=== PATIENT | female | born 1980 | race Hispanic/Latino ===

== ENCOUNTER 2017-12-01 12:24 | Emergency (ER) | payer MEDICAID | END 2017-12-01 14:36 | disposition home or self-care (01) | LOC: EDH 12:24 | DX: F41.1 Generalized anxiety disorder (principal); R07.89 Other chest pain; F31.9 Bipolar disorder, unspecified; G43.909 Migraine, unspecified, not intractable, without status migrainosus; F43.10 Post-traumatic stress disorder, unspecified; Z88.8 Allergy status to other drugs, medicaments and biological substances; Z79.899 Other long term (current) drug therapy; Z72.0 Tobacco use | CPT/HCPCS: 93005 ==

== ENCOUNTER 2018-01-11 20:45 | Emergency (ER) | payer MEDICAID ==
[2018-01-11 22:34] LABS: BASOPHILS % (AUTO) 0.8 % (0.0-5.0); EOSINOPHILS % (AUTO) 1.3 % (0.0-8.0); LYMPHOCYTES % (AUTO) 31.8 % (21.0-51.0); MEAN CORPUSCULAR HEMOGLOBIN 31.1 pg (27.0-33.0); MEAN CORPUSCULAR HGB CONC 34.1 g/dL (32.0-36.0); MEAN CORPUSCULAR VOLUME 91.1 fL (79-99); MONOCYTES % (AUTO) 6.7 % (3.0-13.0); NEUTROPHILS % (AUTO) 59.4 % (40.0-77.0); PLATELET COUNT (AUTO) 192 K/uL (130-400); RED BLOOD CELL COUNT(AUTO) 3.73 MIL/uL (4.00-5.50); RED CELL DISTRIBUTION WIDTH 15.7 % (11.0-15.5); WHITE BLOOD COUNT (AUTO) 7.4 K/uL (4.8-10.8)
[2018-01-11 22:42] LABS: APPEARANCE,URINE CLEAR (CLEAR); BILIRUBIN,URINE NEGATIVE (NEGATIVE); COLOR,URINE YELLOW (YELLOW); GLUCOSE, URINE (UA) NEGATIVE (NEGATIVE); KETONES,URINE NEGATIVE (NEGATIVE); LEUKOCYTE ESTERASE ,URINE NEGATIVE (NEGATIVE); NITRATE,URINE NEGATIVE (NEGATIVE); OCCULT BLOOD,URINE NEGATIVE (NEGATIVE); PH,URINE 5.5 (5.0-8.0); PROTEIN,URINE NEGATIVE (NEGATIVE); UROBILINOGEN,URINE 0.2 mg/dL (0.2-1.0)
[2018-01-11] MEDS ORDERED: DICYCLOMINE HCL 10 MG/ML 2ML AMP IM ONE (22:42)
[2018-01-11 23:04] LABS: CREATININE 0.8 mg/dL (0.5-1.5); POTASSIUM 4.9 mmol/L (3.5-5.1)
[2018-01-11 23:10] LABS: ALBUMIN 3.6 g/dL (3.5-5.0); BILIRUBIN,TOTAL 0.2 mg/dL (0.2-1.0); TOTAL PROTEIN, SERUM 6.9 g/dL (6.0-8.3)
[2018-01-11] MEDS ORDERED: HYOSCYAMINE SULFATE 0.125 MG TAB.SUBL SL ONE (23:57)
== END 2018-01-12 00:11 | disposition home or self-care (01) ==
LOC: EDH 20:45
DX: K59.00 Constipation, unspecified (principal); G43.909 Migraine, unspecified, not intractable, without status migrainosus; F20.9 Schizophrenia, unspecified; Z90.710 Acquired absence of both cervix and uterus; Z90.49 Acquired absence of other specified parts of digestive tract; Z88.6 Allergy status to analgesic agent; Z72.0 Tobacco use
CPT/HCPCS: 36415; 74176; 80053; 81003; 85025; 96372; 99285; J0500

== ENCOUNTER 2018-01-28 21:32 | Emergency (ER) | payer MEDICAID ==
[2018-01-28 22:16] LABS: BASOPHILS % (AUTO) 0.9 % (0.0-5.0); EOSINOPHILS % (AUTO) 3.8 % (0.0-8.0); HEMATOCRIT 33.4 % (36-48); LYMPHOCYTES % (AUTO) 40.3 % (21.0-51.0); MEAN CORPUSCULAR HEMOGLOBIN 30.3 pg (27.0-33.0); MEAN CORPUSCULAR HGB CONC 32.9 g/dL (32.0-36.0); MEAN CORPUSCULAR VOLUME 92.1 fL (79-99); MONOCYTES % (AUTO) 8.7 % (3.0-13.0); NEUTROPHILS % (AUTO) 46.3 % (40.0-77.0); NUCLEATED RED BLOOD CELLS 0.1 % (0.0-0.19); PLATELET COUNT (AUTO) 177 K/uL (130-400); RED BLOOD CELL COUNT(AUTO) 3.63 MIL/uL (4.00-5.50); RED CELL DISTRIBUTION WIDTH 15.3 % (11.0-15.5); WHITE BLOOD COUNT (AUTO) 5.1 K/uL (4.8-10.8)
[2018-01-28 22:20] LABS: CREATININE 1.9 mg/dL (0.5-1.5); POTASSIUM 4.2 mmol/L (3.5-5.1)
[2018-01-28 22:25] LABS: ALBUMIN 3.5 g/dL (3.5-5.0); BILIRUBIN,TOTAL 0.2 mg/dL (0.2-1.0); TOTAL PROTEIN, SERUM 6.9 g/dL (6.0-8.3)
[2018-01-28 22:41] LABS: B-TYPE NATRIURETIC PEPTIDE 18 pg/mL (0-100)
== END 2018-01-29 00:14 | disposition home or self-care (01) ==
LOC: EDH 21:32
DX: R60.0 Localized edema (principal); F43.10 Post-traumatic stress disorder, unspecified; G43.909 Migraine, unspecified, not intractable, without status migrainosus; F41.0 Panic disorder [episodic paroxysmal anxiety]; Z72.0 Tobacco use; Z88.6 Allergy status to analgesic agent
CPT/HCPCS: 36415; 71046; 80053; 82550; 83880; 84484; 85025; 93005; 93970

== ENCOUNTER → 2021-08-31 | Outpatient (CLI) | payer OTHER | END | disposition home or self-care (01) | LOC: DTH 09:37 | PROVIDERS: ATTEND Surgery | DX: Z71.3 Dietary counseling and surveillance (principal); G47.33 Obstructive sleep apnea (adult) (pediatric); K76.0 Fatty (change of) liver, not elsewhere classified; K21.9 Gastro-esophageal reflux disease without esophagitis; E66.09 Other obesity due to excess calories; Z68.37 Body mass index [BMI] 37.0-37.9, adult | CPT/HCPCS: 97803 ==

== ENCOUNTER 2021-10-19 06:50 | Day surgery (SDC) | payer OTHER ==
[2021-10-16 12:59] LABS: BASOPHILS % (AUTO) 0.7 % (0.0-5.0); EOSINOPHILS % (AUTO) 2.2 % (0.0-8.0); HEMATOCRIT 36.9 % (36-48); LYMPHOCYTES % (AUTO) 32.7 % (21.0-51.0); MEAN CORPUSCULAR HEMOGLOBIN 29.9 pg (27.0-33.0); MEAN CORPUSCULAR HGB CONC 31.2 g/dL (32.0-36.0); MEAN CORPUSCULAR VOLUME 96.1 fL (79-99); MONOCYTES % (AUTO) 7.7 % (3.0-13.0); NEUTROPHILS % (AUTO) 56.5 % (40.0-77.0); PLATELET COUNT (AUTO) 165 K/uL (130-400); RED BLOOD CELL COUNT(AUTO) 3.84 MIL/uL (4.00-5.50); RED CELL DISTRIBUTION WIDTH 15.6 % (11.0-15.5); WHITE BLOOD COUNT (AUTO) 4.6 K/uL (4.8-10.8)
[2021-10-16 13:17] LABS: CREATININE 0.9 mg/dL (0.5-1.5); POTASSIUM 3.7 mmol/L (3.5-5.1)
[~2021-10-19] VITALS: Ht 167.6 cm; Wt 109.3 kg
[~2021-10-19 06:50] MED LIST: ALPR-411 PO; BENZ2TAB10 PO; BUSP15TA3 PO; CETI10TA57 PO; ESCI20TA38 PO; GABA300S PO; OXCA300T28 PO; PRAZ1CAP5 PO; QUET300T71 PO; QUET400T54 PO; SPIR100T5 PO; TOPI100C5 PO; TOPI50CA5 PO
[2021-10-19] MEDS ORDERED: 0.9%NACL 1000ML 1,000 ML IV ONE (07:04)
[2021-10-19 07:38] VITALS: BP 130/83
[2021-10-19] MEDS ORDERED: MIDAZOLAM HCL 1 MG/ML 2ML VIAL ONE (08:41)
[2021-10-19] MEDS ORDERED: PROPOFOL 10 MG/ML 20ML VIAL IV ONE (08:41)
[2021-10-19] MEDS ORDERED: GLYCOPYRROLATE 0.2 MG/ML 5 ML VIAL ONE (08:41)
[2021-10-19] MEDS ORDERED: LIDOCAINE HCL 400MG/20ML VIAL ONE (08:41)
[2021-10-19 08:55] VITALS: BP 123/82
[2021-10-19 09:00] VITALS: BP 121/84
[2021-10-19 09:05] VITALS: BP 140/90
[2021-10-19 09:10] VITALS: BP 139/83
[2021-10-19 09:15] VITALS: BP 130/93
== END 2021-10-19 09:30 | disposition home or self-care (01) ==
LOC: DAH 06:50
PROVIDERS: ATTEND Surgery
DX: K21.9 Gastro-esophageal reflux disease without esophagitis (principal); Z20.822 Contact with and (suspected) exposure to COVID-19; J45.909 Unspecified asthma, uncomplicated; E66.01 Morbid (severe) obesity due to excess calories; G43.909 Migraine, unspecified, not intractable, without status migrainosus; G47.30 Sleep apnea, unspecified; Z98.890 Other specified postprocedural states; Z90.49 Acquired absence of other specified parts of digestive tract; Z98.84 Bariatric surgery status; Z98.51 Tubal ligation status; Z68.39 Body mass index [BMI] 39.0-39.9, adult
CPT/HCPCS: 36415; 43235; 80048; 85025; 87426; 93005; A4215 ×2; A4221; A4223; A4606; A4620; A4663; J2250; J2704; J3490 ×2; J7030

== ENCOUNTER 2023-07-09 17:36 | Emergency (ER) | payer OTHER ==
[~2023-07-09] VITALS: Ht 167.6 cm; Wt 119.7 kg
[~2023-07-09 17:36] MED LIST changes: -BENZ2TAB10 PO; +BENZ2TAB70 PO; -GABA300S PO; +GABA300S3 PO; -QUET300T71 PO; +QUET300T90 PO
[2023-07-09 17:58] LABS: BASOPHILS # (AUTO) 0.03 K/uL (0.00-0.20); BASOPHILS % (AUTO) 0.4 % (0.0-5.0); EOSINOPHILS # (AUTO) 0.11 K/uL (0.00-0.70); EOSINOPHILS % (AUTO) 1.5 % (0.0-8.0); HEMATOCRIT 37.3 % (36-48); IMMATURE GRANULOCYTE ABSOLUTE 0.04 K/uL (0-1); LYMPHOCYTES # (AUTO) 1.9 K/uL (1.0-4.8); LYMPHOCYTES % (AUTO) 26.5 % (21.0-51.0); MEAN CORPUSCULAR HEMOGLOBIN 29.4 pg (27.0-33.0); MEAN CORPUSCULAR HGB CONC 31.1 g/dL (32.0-36.0); MEAN CORPUSCULAR VOLUME 94.7 fL (79-99); MONOCYTES # (AUTO) 0.5 K/uL (0.1-1.0); MONOCYTES % (AUTO) 6.3 % (3.0-13.0); NEUTROPHILS # (AUTO) 4.7 K/uL (1.8-7.7); NEUTROPHILS % (AUTO) 64.8 % (40.0-77.0); PLATELET COUNT (AUTO) 203 K/uL (130-400); RED BLOOD CELL COUNT(AUTO) 3.94 MIL/uL (4.00-5.50); RED CELL DISTRIBUTION WIDTH 14.5 % (11.0-15.5); WHITE BLOOD COUNT (AUTO) 7.3 K/uL (4.8-10.8)
[2023-07-09 18:05] LABS: POTASSIUM 4.3 mmol/L (3.5-5.1)
[2023-07-09 18:15] LABS: ALBUMIN 3.8 g/dL (3.5-5.0); BILIRUBIN,TOTAL 0.2 mg/dL (0.2-1.0); TOTAL PROTEIN, SERUM 7.9 g/dL (6.0-8.3)
[2023-07-09] MEDS ORDERED: ACETAMINOPHEN 500 MG TABLET PO ONE (20:30)
[2023-07-09] MEDS ORDERED: CYCLOBENZAPRINE HCL 10 MG TABLET PO ONE (20:30)
[2023-07-09] MEDS ORDERED: ACET-2079 PO (21:42)
[2023-07-09] MEDS ORDERED: CYCL10TA16 PO (21:42)
[2023-07-09 22:08] VITALS: BP 139/68; PULSE 60; RESP 18; O2SAT 98
== END 2023-07-09 22:18 | disposition home or self-care (01) ==
LOC: EDH 17:36
DX: R07.89 Other chest pain (principal); E66.9 Obesity, unspecified; Z79.899 Other long term (current) drug therapy; Z88.6 Allergy status to analgesic agent; Z68.42 Body mass index [BMI] 45.0-49.9, adult; V89.2XXA Person injured in unspecified motor-vehicle accident, traffic, initial encounter; Y93.89 Activity, other specified; Y92.89 Other specified places as the place of occurrence of the external cause; Y99.8 Other external cause status
CPT/HCPCS: 36415; 71045; 80053; 82550; 84484; 85025; 93005

== ENCOUNTER 2024-10-11 06:44 | Day surgery (SDC) | payer OTHER ==
[2024-10-11] VITALS (11 sets, daily range): BP systolic 118–155; BP diastolic 74–101; PULSE 66–77; RESP 16–29; TEMP 97.3–97.8
[~2024-10-11] VITALS: Ht 167.6 cm; Wt 131.5 kg
[~2024-10-11 06:44] MED LIST changes: -ALPR-411 PO; +ALPR1TAB10 PO; -BENZ2TAB70 PO; +BENZ2TAB71 PO; -GABA300S3 PO; -OXCA300T28 PO; -QUET300T90 PO; +SODIUM TETRADECYL SULFATE 30 MG/ML 2 ML VIAL IV SCH; -SPIR100T5 PO; +[UNRECOGNIZED DRUG - CODE] PO
[2024-10-11] MEDS: 0.9%NACL 1000ML 1,000 ML IV ONE (07:25)
[2024-10-11] MEDS ORDERED: MIDAZOLAM HCL 1 MG/ML 2ML VIAL ONE (08:25)
[2024-10-11] MEDS ORDERED: proPOFol 10 MG/ML 20ML VIAL IV ONE (08:25)
[2024-10-11] MEDS ORDERED: LIDOCAINE PF 100MG/5ML (2%) SYRINGE 5ML ONE (08:25)
[2024-10-11] MEDS ORDERED: BENZOCAINE 20% 57 GM SPRAY ONE (08:33)
--- NOTE | 2024-10-11 09:10 | OP ---
Operative Note: DATE OF PROCEDURE: 10/11/24 SURGEON: MARVA NI MD PROMOTIONAL DEMONSTRATOR: [] ANESTHESIA: [] General ANESTHESIOLOGIST/BIG DATA DEVELOPER: [] PREOPERATIVE DIAGNOSIS: [] GERD POSTOPERATIVE DIAGNOSIS: [] The same SYNOPSIS: [] PROCEDURE: [] Upper endoscopy with a sclerotherapy ESTIMATED BLOOD LOSS: [] INDICATIONS: [] DESCRIPTION OF PROCEDURE: []With the patient in conscious sedation I inserted the endoscope through the mouth. We advanced this to the esophagus was compl etely normal. Z-line was at 40 cm. We entered the stomach and found a small gastric pouch. There was no pathology in the gastrojejunostomy was about 1-1/2 to 2 cm. The jejunum was completely normal. I then injected 10 cc of sclerotherapy irrigation around the gastrojejunostomy. No complication. Before retrieving the scope I suctioned all the fluid and air. Procedure was c ompleted without any complication. MARVA NI MD Oct 11, 2024 09:10
[2024-10-11] MEDS ORDERED: MEPERIDINE-PF 25 MG/ML SYG ONE (09:14)
== END 2024-10-11 10:00 | disposition home or self-care (01) ==
LOC: DAH 06:44
PROVIDERS: ATTEND Surgery
DX: K21.9 Gastro-esophageal reflux disease without esophagitis (principal); J45.909 Unspecified asthma, uncomplicated; G47.30 Sleep apnea, unspecified; I10 Essential (primary) hypertension; E66.01 Morbid (severe) obesity due to excess calories; Z79.899 Other long term (current) drug therapy; Z79.01 Long term (current) use of anticoagulants; Z79.82 Long term (current) use of aspirin; Z68.42 Body mass index [BMI] 45.0-49.9, adult
CPT/HCPCS: 43236; J7030 ×2; J2003; J2250; J2704; J2175; J3490 ×3; A4620; A4215 ×2; A4223; A4222; A4221; A4663; A4606

== ENCOUNTER 2024-11-22 06:40 | Day surgery (SDC) | payer OTHER ==
[2024-11-22] VITALS (10 sets, daily range): BP systolic 109–131; BP diastolic 65–80; PULSE 59–71; RESP 15–18; TEMP 97.3–98.5
[~2024-11-22] VITALS: Ht 167.6 cm; Wt 124.7 kg
[~2024-11-22 06:40] MED LIST changes: -CETI10TA57 PO; -ESCI20TA38 PO; +LAMO100T16 PO; +LITH300T3 PO; +PRAZ2CAP2 PO; +RISP4TAB63 PO; +SERT-440 PO; -SODIUM TETRADECYL SULFATE 30 MG/ML 2 ML VIAL IV SCH
[2024-11-22] MEDS: 0.9%NACL 1000ML 1,000 ML IV ONE (07:45)
[2024-11-22] MEDS ORDERED: SODIUM TETRADECYL SULFATE 30 MG/ML 2 ML VIAL IV ONE (09:00)
[2024-11-22] MEDS ORDERED: proPOFol 10 MG/ML 20ML VIAL IV ONE (09:06)
[2024-11-22] MEDS ORDERED: SUCCINYLCHOLINE CHLORIDE 20 MG/ML 10 ML VIAL ONE (09:11)
--- NOTE | 2024-11-22 10:17 | NUR ---
Full and complete discharge instructions given to Patient and Family both verbally and in writing. Explained GI procedure precautions and follow up. All questions answered. PIV removed with catheter tip intact. Home with Family W/C to POV. Addendum: 11/22/24 at 1026 by ISABEL CHRISTOPHER RN RN Patient now stated they are awaiting Medical transportation and insists on waiting in the Lobby with Educated on need to have W/C to Transport vehicle. Adamantly refuses to stay in DP room. Easily agitated and mildly anxious. Patient on multiple Psych meds. Husbands advises he will "Handle her" and is "Responsible for her and her safety" [facility] Informed CN, Toni DUMONT.
--- NOTE | 2024-11-22 12:29 | OP ---
Operative Note: DATE OF PROCEDURE: 11/22/24 SURGEON: MARVA NI MD VESSEL OPERATOR: [] ANESTHESIA: [] Mac ANESTHESIOLOGIST/CHIEF LOCK TENDER OPERATOR: [] PREOPERATIVE DIAGNOSIS: [] GERD POSTOPERATIVE DIAGNOSIS: [] The same SYNOPSIS: [] PROCEDURE: [] EGD with sclerotherapy ESTIMATED BLOOD LOSS: [] INDICATIONS: [] DESCRIPTION OF PROCEDURE: []With the patient in conscious sedation I inserted the endoscope through the mouth. We advanced this to the esophagus was completely normal. Z-line was at 40 cm. We entered the stomach and found a small gastric pouch. There was no pathology in the gastrojejunostomy was about 1-1/2 to 2 cm. The jejunum was completely normal. I then injected 10 cc of sclerotherapy irrigation around the gastrojejunostomy. No complication. Before retrieving the scope I suctioned all the fluid and air. Procedure was completed without any complication. MARVA NI MD Nov 22, 2024 12:29
== END 2024-11-22 10:18 | disposition home or self-care (01) ==
LOC: ENDO 06:40 → DAH 06:40 → ENDO 10:18
PROVIDERS: ATTEND Surgery
DX: K21.9 Gastro-esophageal reflux disease without esophagitis (principal); G47.30 Sleep apnea, unspecified; J45.909 Unspecified asthma, uncomplicated; G43.909 Migraine, unspecified, not intractable, without status migrainosus; E66.01 Morbid (severe) obesity due to excess calories; R56.9 Unspecified convulsions; Z90.49 Acquired absence of other specified parts of digestive tract; Z98.51 Tubal ligation status; Z68.41 Body mass index [BMI] 40.0-44.9, adult; Z88.8 Allergy status to other drugs, medicaments and biological substances; Z98.84 Bariatric surgery status; Z99.89 Dependence on other enabling machines and devices; Z79.899 Other long term (current) drug therapy
CPT/HCPCS: 43236; J7030 ×2; J2704; J3490; A4620; A4215 ×2; A4223; A4222; A4221; A4663; A4606; J0330

== ENCOUNTER 2024-12-20 06:46 | Day surgery (SDC) | payer OTHER ==
[2024-12-20] VITALS (11 sets, daily range): BP systolic 108–132; BP diastolic 62–86; PULSE 56–68; RESP 15–18; TEMP 97.3–98.1
[~2024-12-20] VITALS: Ht 167.6 cm; Wt 121.6 kg
[2024-12-20] MEDS ORDERED: 0.9%NACL 1000ML 1,000 ML IV ONE (06:53)
[2024-12-20] MEDS ORDERED: SODIUM TETRADECYL SULFATE 30 MG/ML 2 ML VIAL IV ONE (08:30)
[2024-12-20] MEDS ORDERED: LIDOCAINE PF 100MG/5ML (2%) SYRINGE 5ML ONE (08:46)
[2024-12-20] MEDS ORDERED: proPOFol 10 MG/ML 20ML VIAL IV ONE (08:46)
[2024-12-20] MEDS: SIMETHICONE 40 MG/0.6 ML ML ONE (09:41)
--- NOTE | 2024-12-20 10:23 | OP ---
Operative Note: DATE OF PROCEDURE: 12/20/24 SURGEON: MARVA NI MD DOBBY LOOMS PEGGER: [] ANESTHESIA: [] Mac ANESTHESIOLOGIST/AIRBORNE AND AIR DELIVERY SPECIALIST: [] PREOPERATIVE DIAGNOSIS: [] GERD Status post gastric bypass POSTOPERATIVE DIAGNOSIS: [] The same SYNOPSIS: [] PROCEDURE: [] Upper endoscopy with sclerotherapy ESTIMATED BLOOD LOSS: [] None INDICATIONS: [] DESCRIPTION OF PROCEDURE: [] With the patient in conscious sedation I inserted the endoscope through the mouth. We advanced this to the esophagus was completely normal. Z-line was at 40 cm. We entered the stomach and found a small gastric pouch. There was significant amount of enteric content in the pouch There was no pathology in the gastrojejunostomy was about 1-1/2 to 2 cm. The jejunum was completely normal. I then injected 10 cc of sclerotherapy irrigation around the gastrojejunostomy. No complication. Before retrieving the scope I suctioned all the fluid and air. Procedure was completed without any complication. MARVA NI MD Dec 20, 2024 10:23
== END 2024-12-20 10:15 | disposition home or self-care (01) ==
LOC: ENDO 06:46 → DAH 06:46 → ENDO 10:15
PROVIDERS: ATTEND Surgery
DX: K21.9 Gastro-esophageal reflux disease without esophagitis (principal); J45.909 Unspecified asthma, uncomplicated; G47.30 Sleep apnea, unspecified; E66.9 Obesity, unspecified; Z90.49 Acquired absence of other specified parts of digestive tract; Z98.51 Tubal ligation status; Z88.8 Allergy status to other drugs, medicaments and biological substances; Z68.41 Body mass index [BMI] 40.0-44.9, adult; Z98.84 Bariatric surgery status; Z79.899 Other long term (current) drug therapy
CPT/HCPCS: 43236; J7030; J2003; J2704; J3490; A4620; A4215; A4657